=== PATIENT | male | born 1965 | race Caucasian/White ===

== ENCOUNTER → 2020-11-17 | Outpatient (CLI) | payer OTHER | LOC: EMI 10:56 | DX: M54.2 Cervicalgia (principal); M50.321 Other cervical disc degeneration at C4-C5 level | CPT/HCPCS: 72141 ==

== ENCOUNTER 2021-04-28 18:17 | Emergency (ER) | payer SELFPAY | END 2021-04-28 19:06 | disposition home or self-care (01) | LOC: ER1 18:17 | DX: S61.512A Laceration without foreign body of left wrist, initial encounter (principal); W45.8XXA Other foreign body or object entering through skin, initial encounter; Y92.009 Unspecified place in unspecified non-institutional (private) residence as the place of occurrence of the external cause | CPT/HCPCS: 12001; 90471; 90715; 99283 ==